=== PATIENT | male | born 1960 | race Caucasian/White ===

== ENCOUNTER 2018-02-09 12:38 | Emergency (ER) | payer OTHER ==
[2018-02-09] MEDS ORDERED: KEPPRA 1,000 MG/NS 0.75% 100ML 1,000 MG/100 ML BAG IV ONE (13:23)
[2018-02-09] MEDS ORDERED: ATIVAN IM ONE (13:45)
[2018-02-09] MEDS ORDERED: ATIVAN ONE (13:51)
[2018-02-09 13:58] LABS: Basophils % (Auto) 0.3 % (0.0-1.8); Hematocrit 45.8 % (35.5-45.6); Hemoglobin 15.9 gm/dl (11.8-15.2); Lymphocytes % (Auto) 10.2 % (13.4-35.0); Mean Corpuscular HGB Conc 35 % (32-34); Mean Corpuscular Volume 90 fl (84-94); Monocytes # (Auto) 0.6 K/mm3 (0.0-0.8); Monocytes % (Auto) 5.6 % (0.0-7.3); Platelet Count 253 K/mm3 (140-440); Red Cell Distribution Width 13.2 % (13.2-15.2)
[2018-02-09] MEDS ORDERED: KEPPRA PO ONE (13:58)
[2018-02-09 14:26] LABS: BUN/Creatinine Ratio 21; Blood Urea Nitrogen 21 mg/dL (9-20); Calcium 9.6 mg/dL (8.4-10.2); Hemolysis Index 30
[2018-02-09] MEDS ORDERED: K-DUR PO ONE ×2 (14:41→17:14)
--- NOTE | 2018-02-09 14:55 | Emergency Department Report ---
ED Seizure HPI - General Chief Complaint: Seizure Stated Complaint: SEIZURE Time Seen by Provider: 02/09/18 13:01 Source: patient Mode of arrival: Stretcher Limitations: No Limitations - History of Present Illness Initial Comments: 57-year-old male with past medical history of arthritis, asthma, hypertension, and seizures presents to the hospital after having a seizure while at daycare. Patient has been incarcerated for 10 years. Last seizure was 6 months ago. Patient face he has been on Keppra in the past but does not know when he she'll stop giving him his medication. As per progress note provided by the Nursing Home, patient began to have tonic-clonic movements and was unresponsive. Seizure activity lasted 10 minutes followed by 20 minute postictal period. Apparently the field did not have any history of seizure in his medical record. He also noted last night he had an allergic reaction/choking episode that improved after Benadryl and Solu-Medrol. They expressed concerns of esophageal dysfunction and possible aspiration. Patient states he had seizure disorder since having a head injury and past. 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 No complaints of tongue laceration or urinary incontinence. Patient received Ativan IM prior to arrival. - Related Data Previous Rx's Medication Instructions Recorded Last Taken Type levETIRAcetam [Keppra TAB] 500 mg PO BID #60 tablet 02/09/18 Unknown Rx Allergies Allergy/AdvReac Type Severity Reaction Status Date / Time Penicillins Allergy Itching Verified 02/09/18 12:56 ED Review of Systems ROS: Stated complaint: SEIZURE Other details as noted in HPI Comment: All other systems reviewed and negative ED Past Medical Hx - Past Medical History Hx Hypertension: Yes Hx Arthritis: Yes Hx Asthma: Yes - Surgical History Past Surgical History?: No - Social History Smoking Status: Never Smoker Substance Use Type: None - Medications Home Medications: Home Medications Medication Instructions Recorded Confirmed Last Taken Type levETIRAcetam [Keppra TAB] 500 mg PO BID #60 tablet 02/09/18 Unknown Rx ED Physical Exam - General Limitations: No Limitations - Other Other exam information: General: No limitations, patient is alert in no acute distress Head exam: Atraumatic, normocephalic Eyes exam: Normal appearance, pupils equal reactive to light, extraocular movements intact ENT: Moist mucous membrane, normal oropharynx without laceration Neck exam: Normal inspection, full range of motion, no meningismus nontender Respiratory exam: Clear to auscultation bilateral, no wheezes, rales, crackles Cardiovascular: Normal rate and rhythm, normal heart sounds Abdomen: Soft, nondistended, and nontender, with normal bowel sounds, no rebound, or guarding Extremity: Full range of motion normal inspection no deformity Back: Normal Inspection, full range of motion, no tenderness Neurologic: Alert, oriented x3, cranial nerves intact, no motor or sensory deficit Psychiatric: normal affect, normal mood Skin: Warm, dry, intact ED Course Vital Signs 02/09/18 02/09/18 12:56 14:43 Temperature 98 F Pulse Rate 102 H Respiratory 16 18 Rate Blood Pressure 141/81 O2 Sat by Pulse 95 100 Oximetry ED Medical Decision Making - Lab Data Result diagrams: 02/09/18 13:46 02/09/18 13:46 Lab Results 02/09/18 02/09/18 02/09/18 Range/Units 13:46 13:46 15:39 WBC 10.1 (4.5-11.0) K/mm3 RBC 5.10 H (3.65-5.03) M/mm3 Hgb 15.9 H (11.8-15.2) gm/dl Hct 45.8 H (35.5-45.6) % MCV 90 (84-94) fl MCH 31 (28-32) pg MCHC 35 H (32-34) % RDW 13.2 (13.2-15.2) % Plt Count 253 (140-440) K/mm3 Lymph % (Auto) 10.2 L (13.4-35.0) % Haskell % (Auto) 5.6 (0.0-7.3) % Eos % (Auto) 0.0 (0.0-4.3) % Baso % (Auto) 0.3 (0.0-1.8) % Lymph # 1.0 L (1.2-5.4) K/mm3 Haskell # 0.6 (0.0-0.8) K/mm3 Eos # 0.0 (0.0-0.4) K/mm3 Baso # 0.0 (0.0-0.1) K/mm3 Seg Neutrophils % 83.9 H (40.0-70.0) % Seg Neutrophils # 8.5 H (1.8-7.7) K/mm3 Sodium 139 (137-145) mmol/L Potassium 3.2 L (3.6-5.0) mmol/L Chloride 94.7 L (98-107) mmol/L Carbon Dioxide 25 (22-30) mmol/L Anion Gap 23 mmol/L BUN 21 H (9-20) mg/dL Creatinine 1.0 (0.8-1.5) mg/dL Estimated GFR > 60 ml/min BUN/Creatinine Ratio 21 % Glucose 173 H (75-100) mg/dL Calcium 9.6 (8.4-10.2) mg/dL Magnesium 2.10 (1.7-2.3) mg/dL Urine Opiates Screen Presumptive negative Urine Methadone Screen Presumptive negative Ur Barbiturates Screen Presumptive negative Ur Phencyclidine Scrn Presumptive negative Ur Amphetamines Screen Presumptive negative U Benzodiazepines Scrn Presumptive negative Urine Cocaine Screen Presumptive negative U Marijuana (THC) Screen Presumptive negative Drugs of Abuse Note Disclamer - Radiology Data Radiology results: report reviewed - Medical Decision Making During ED stay patient had an additional seizure received 2 mg of IM Ativan. Unfortunately despite multiple INT attempts we were unable to obtain vascular access. Patient took Keppra 1 g by mouth was observed for 3 additional hours. Patient did not have any additional seizures since receiving Keppra. He will be discharged back to half-way with seizure medication - Differential Diagnosis seizure, psychogenic seizure, electrolyte abnormality, drug use Critical Care Time: No Critical care attestation.: If time is entered above; I have spent that time in minutes in the direct care of this critically ill patient, excluding procedure time. ED Disposition Clinical Impression: Seizure Disposition: [id number] TO HOME OR SELFCARE Is pt being admited?: No Does the pt Need Aspirin: No Condition: Stable Instructions: Recurrent Seizures Adult (ED) Additional Instructions: Take the medication as prescribed. Follow up with your doctor and a neurologist. Return if symptoms worsen as indicated by your discharge instructions Prescriptions: levETIRAcetam [Keppra TAB] 500 mg PO BID #60 tablet Referrals: PRIMARY CARE, [Primary Care Provider] - 3-5 Days CRISTAL CURIEL MD [Staff Physician] - 3-5 Days (Neurologist) Time of Disposition: 18:22
[2018-02-09] MEDS ORDERED: POTASSIUM CHLORIDE FEEDTUBE ONE (15:42)
[2018-02-09 16:00] LABS: Amphetamine Screen,Urine PRESUMPTIVE NEGATIVE; Benzodiazepines Screen,Urine PRESUMPTIVE NEGATIVE; Cannabinoid Screen,Urine PRESUMPTIVE NEGATIVE; Cocaine Screen,Urine PRESUMPTIVE NEGATIVE; Methadone Screen,Urine PRESUMPTIVE NEGATIVE; Opiate Screen,Urine PRESUMPTIVE NEGATIVE
--- NOTE | 2018-02-09 17:26 | XRay Report ---
FINAL REPORT PROCEDURE: XR CHEST 1V AP TECHNIQUE: Chest radiograph anteroposterior view. CPT 59517 HISTORY: s/p sz while eating COMPARISON: No prior studies are available for comparison. FINDINGS: Heart: Normal. Mediastinum/Vessels: Normal. Lungs/Pleural space: No infiltrate, effusion, or pneumothorax. Bony thorax: No acute osseous abnormality. Life support devices: None. IMPRESSION: No radiographic evidence of acute cardiopulmonary abnormality.
[2018-02-09 18:50] VITALS: BP 157/77
== END 2018-02-09 18:50 | disposition home or self-care (01) ==
LOC: ED 12:38
DX: G40.909 Epilepsy, unspecified, not intractable, without status epilepticus (principal); I10 Essential (primary) hypertension; M19.90 Unspecified osteoarthritis, unspecified site; J45.909 Unspecified asthma, uncomplicated
CPT/HCPCS: 36415; 71045; 80048; 80307; 83735; 85025; 96372; 99284; J2060